=== PATIENT | male | born 1985 | race Caucasian/White ===

== ENCOUNTER 2021-10-18 16:31 | Emergency (ER) | payer BC ==
[~2021-10-18] VITALS: Ht 175.3 cm; Wt 88.5 kg
--- NOTE | 2021-10-18 16:40 | NUR ---
MD at bedside, medical screening exam in progress.
[2021-10-18] MEDS ORDERED: IBUPROFEN 600 MG TABLET ONE (16:55)
[2021-10-18] MEDS ORDERED: IBUPROFEN 600 MG TABLET PO ONE (17:00)
[2021-10-18] MEDS ORDERED: IBUP-1955 PO (17:52)
[2021-10-18 18:06] VITALS: BP 122/80
--- NOTE | 2021-10-18 18:06 | NUR ---
Patient discharged to home in stable condition. Written and verbal after care instructions given. Patient verbalizes understanding of instructions. Stressed follow up or return to ER for worsening s/s.
== END 2021-10-18 18:14 | disposition home or self-care (01) ==
LOC: ER 16:33
DX: M79.662 Pain in left lower leg (principal); M25.572 Pain in left ankle and joints of left foot
CPT/HCPCS: 73610; A4663